=== PATIENT | female | born 1985 | race Caucasian/White ===

== ENCOUNTER 2024-08-01 08:13 | Emergency (ER) | payer SELFPAY ==
[2024-08-01 08:13] VITALS: BP 121/58; PULSE 101; RESP 16; TEMP 36.1; O2SAT 98; BMI 36.3
--- NOTE | 2024-08-01 08:46 | ED.VIS.FEGU ---
HPI HPI - Female History of Present Illness Chief Complaint: Female C/O Narrative Narrative: Patient is a 39-year-old female with no known significant past medical history who presented to the emergency department with a chief complaint of I have a golf ball sized swelling on the right side of my vagina. Patient states that has been there for 2 days now and she tried sitz bath's at home however it is only enlarged and has had more pain associated with this prompting her to come here for further evaluation management. Patient states that this is never happened before. Patient states that she does not follow with [facility] nor does she follow with a primary care physician. Patient rates her pain a 10 out of 10. PFSH PFSH Home Medications ?Medication ?Instructions ?Recorded ?Last Taken ?Type promethazine 25 mg tablet 25 mg PO Q6H PRN PRN Nausea ##10 09/26/16 Unknown Rx doxycycline hyclate 100 mg capsule 100 mg PO BID 7 days #14 caps 08/01/24 Unknown Rx Allergy/AdvReac Type Severity Reaction Status Date / Time nickel Allergy Rash Verified 08/01/24 08:14 Social History Smoking Status: Current every day smoker tobacco type: cigarettes ROS ROS ED ROS Narrative Constitutional: Denies any fevers, chills, headaches Abdomen: Denies abdominal pain nausea vomiting diarrhea : Complains of swelling in the right side of vagina as noted above denies any painful urination, hematuria and polyuria Neurological: Denies numbness, and some tingling Musculoskeletal: Denies back pain Skin: Complains of swelling as noted above EXAM Physical Exam Narrative Exam Narrative: General: Patient was lying in bed did appear to be uncomfortable secondary to her pain Head: Atraumatic, normocephalic Eyes: PERRL bilaterally, EOMI bilateral, no conjunctival injection noted Neck: Soft, supple, trachea midline Genitourinary: Patient has a Bartholin's gland abscess noted in the right side of her vagina Extremities: Patient moving all extremities on exam Neurological: Patient follow commands knew that she was at [facility] year is 2023 Skin: Warm, dry, see genitourinary Const Vital Signs: 08/01/24 08:13 Temperature 96.9 F L Temperature Source Temporal Pulse Rate 101 H Respiratory Rate 16 Blood Pressure 121/58 H Blood Pressure Mean 79 Pulse Ox 98 Oxygen Delivery Method Room Air MDM MDM MDM Narrative Medical decision making narrative: Patient is a 39-year-old female who presented to the emergency department chief complaint of swelling and pain on the right side of her vagina. On the differential diagnosis includes but not limited to Bartholin's gland abscess. Patient had the area anesthetized with 1% lidocaine and I&D was performed. Patient will be placed on oral antibiotics and was given follow-up for [facility] in the outpatient setting. She was also given referral to a primary care physician as she does not have 1. She was encouraged to sitz bath as and use ibuprofen and Tylenol [id number] for pain control. Patient was encouraged return with worsening symptoms or other concerns. Patient would like to go home at this point time all question concerns answered she was discharged home in stable condition. Discharge Plan Triage Chief Complaint: Female C/O ED Provider: Aydin Sousa Dx/Rx/DC Orders Clinical Impression: Bartholin's gland abscess Prescriptions: New doxycycline hyclate 100 mg capsule 100 mg PO BID 7 Days Qty: 14 0RF No Action promethazine 25 MG tablet 25 mg PO Q6H PRN PRN (Reason: Nausea) Qty: 10 0RF Primary Care Provider: Care Physician,No Primary Referrals: Care Physician,No Primary [Primary Care Provider] - Carlota Simon CNM [Med Staff - Adv Practice Prof] - Bertin Sanchez MD [Med Staff - Distributor Of Directories] - Activity Restrictions/Additional Instructions: Continue to do sitz bath's at home. Rotate Tylenol and ibuprofen [id number]. Take antibiotics as prescribed. Follow-up with [facility] that you referred to as well as family physician they referred to. Return with worsening symptoms or any other concerns that we discussed here Print Language: Kyrgyz Disposition Disposition: Home, Self Care
[2024-08-01] MEDS: HYDROcodone Bitartrate/Apap 5/325 Tablet PO (08:56)
[2024-08-01] MEDS: Lidocaine 1% (20 ml mdv) 20 ML Vial 10 ML INFILT (08:56)
[2024-08-01] MEDS: Ondansetron ODT 4 MG Tablet PO (08:56)
[2024-08-01 08:59] VITALS: BP 124/62; PULSE 99; RESP 16; TEMP 36.6; O2SAT 99
== END 2024-08-01 09:03 | disposition home or self-care (01) ==
PROVIDERS: Emergency Provider Emergency Medicine; Visit Provider Emergency Medicine
DX: N75.1 Abscess of Bartholin's gland (principal); F17.210 Nicotine dependence, cigarettes, uncomplicated
CPT/HCPCS: 56420; 99282